=== PATIENT | female | born 1985 | race Caucasian/White ===

== ENCOUNTER → 2018-11-12 | Outpatient (CLI) | payer MEDICAID ==
--- NOTE | 2018-11-12 14:27 | RADIOLOGY REPORT (SQ) ---
EXAM DESCRIPTION: U/S OB TRANSVAGINAL W/O DOP COMPLETED DATE/TIME: 11/12/2018 1:38 pm REASON FOR STUDY: Z34.81 ENCOUNTER FOR SUPRVSN OF NORMAL , FIRST TRIMESTER Z34.81 ENCOUNTE R FOR SUPRVSN OF NORMAL , FIRST TRIM COMPARISON: None. TECHNIQUE: Transvaginal static and realtime grayscale images acquired of the pelvis. Additional jhonny cted spectral and color Doppler images recorded. All images stored on PACs. bHCG: Not available CLINICAL DATES: LMP 09/02/2018. 10 weeks 1 day LIMITATIONS: None. FINDINGS: FETUS: Single Living intrauterine . ULTRASOUND EGA: 6 weeks 0 days ULTRASOUND FELICITA: 07/08/2019 EFW: Not applicable less than 20 weeks. CRL: 0.35 cm FHR: Very faint flicker is seen. SURVEY: No visualized anomalies. AMNIOTIC FLUID: Adequate amount. PLACENTA: Not yet developed due to early gestation. SUBCHORIONIC BLEED: No SIZE OF BLEED: Not applicable. UTERUS: No masses. No anomalies. CERVICAL LENGTH: 3.3 cm Closed. RIGHT ADNEXA: Normal ovary with normal vascular flow. 3.8 x 2.4 x 1.7 cm. No adnexal free fluid. No adnexal masses. LEFT ADNEXA: Normal ovary with normal vascular flow. 2.4 x 1.8 x 1.5 cm. No adnexal free fluid. No adnexal masses. FREE FLUID: None. OTHER: No other significant finding. IMPRESSION: There appears to be an early intrauterine gestation of 6 weeks 0 days. Strong hea rt motion was not noted. Follow-up as clinically indicated. Trimester of : First - 0 to 13 weeks. TECHNICAL DOCUMENTATION: JOB ID: [id number] [facility]- All Rights Reserved rev-02/08 Reading location - IP/workstation name: [email or web address]
== END ==
LOC: RAD 12:33
PROVIDERS: ATTEND Nurse Practitioner
DX: Z34.81 Encounter for supervision of other normal pregnancy, first trimester (principal)
CPT/HCPCS: 76817

== ENCOUNTER 2018-11-23 15:23 | Emergency (ER) | payer MEDICAID ==
--- NOTE | 2018-11-23 15:38 | ER Document Report ---
ED Medical Screen (RME) - General Chief Complaint: Anxiety Stated Complaint: PSYCH CONSULT Time Seen by Provider: 11/23/18 15:36 Primary Care Provider: MIKAEL COOPER [Primary Care Provider] - Follow up as needed Mode of Arrival: Ambulatory Information source: Patient TRAVEL OUTSIDE OF THE [place] IN LAST 30 DAYS: No - HPI Patient complains to provider of: psych consult Onset: Other - pt. with h/o BPD with recent thoughts of SI - Related Data Allergies/Adverse Reactions: codeine [Codeine] Allergy (Verified 11/23/18 15:29) Past Medical History - Immunizations Hx Diphtheria, Pertussis, Tetanus Vaccination: Yes Physical Exam - Vital signs Vitals: Temp Pulse Resp BP Pulse Ox 99.1 F 88 16 121/71 98 11/23/18 15:30 11/23/18 15:30 11/23/18 15:30 11/23/18 15:30 11/23/18 15:30 Course - Vital Signs Vital signs: Temp Pulse Resp BP Pulse Ox 99.1 F 88 16 121/71 98 11/23/18 15:30 11/23/18 15:30 11/23/18 15:30 11/23/18 15:30 11/23/18 15:30 Doctor's Discharge - Discharge Referrals: MIKAEL COOPER [Primary Care Provider] - Follow up as needed
[2018-11-23 16:33] LABS: ABSOLUTE EOSINOPHILS # (AUTO) 0.1 10^3/uL (0.0-0.6); ABSOLUTE LYMPHOCYTES (AUTO) 2.7 10^3/uL (0.5-4.7); ABSOLUTE MONOCYTES (AUTO) 0.7 10^3/uL (0.1-1.4); ABSOLUTE NEUT (AUTO) 6.3 10^3/uL (1.7-8.2); BASOPHILS % (AUTO) 0.4 % (0-2); EOSINOPHILS % (AUTO) 0.6 % (0-6); HEMATOCRIT 38.1 % (36.0-47.0); LYMPHOCYTES % (AUTO) 27.8 % (13-45); MEAN CORPUSCULAR HEMOGLOBIN 30.8 pg (27.0-33.4); MEAN CORPUSCULAR HGB CONC 34.1 g/dL (32.0-36.0); MEAN CORPUSCULAR VOLUME 90 fl (80-97); MONOCYTES % (AUTO) 7.5 % (3-13); PLATELET COUNT 241 10^3/uL (150-450); RED BLOOD COUNT 4.22 10^6/uL (3.72-5.28); RED CELL DISTRIBUTION WIDTH 12.5 % (11.5-14.0); SEGMENTED NEUTROPHILS % (AUTO) 63.7 % (42-78); TOTAL CELLS COUNTED % (AUTO) 100 %; WHITE BLOOD COUNT 9.9 10^3/uL (4.0-10.5)
[2018-11-23 16:34] LABS: APPEARANCE,URINE SLIGHTLY-CLOUDY; BILIRUBIN,URINE NEGATIVE (NEGATIVE); COLOR,URINE YELLOW; GLUCOSE, URINE NEGATIVE (NEGATIVE); KETONES,URINE NEGATIVE (NEGATIVE); LEUKOCYTE ESTERASE,URINE NEGATIVE (NEGATIVE); NITRITE,URINE NEGATIVE (NEGATIVE); PROTEIN,URINE NEGATIVE (NEGATIVE); URINE SPECIFIC GRAVITY 1.024
[2018-11-23 16:48] LABS: ALANINE AMINOTRANSFERASE 30 U/L (9-52); ALBUMIN 4.5 g/dL (3.5-5.0); ALKALINE PHOSPHATASE 65 U/L (38-126); ANION GAP 7 (5-19); ASPARTATE AMINO TRANSFERASE 27 U/L (14-36); BILIRUBIN,DIRECT 0.1 mg/dL (0.0-0.4); BILIRUBIN,TOTAL 0.4 mg/dL (0.2-1.3); BLOOD UREA NITROGEN 11 mg/dL (7-20); CALCIUM 9.2 mg/dL (8.4-10.2); CARBON DIOXIDE 29 mmol/L (22-30); CHLORIDE 106 mmol/L (98-107); GLUCOSE 83 mg/dL (75-110); POTASSIUM 4.3 mmol/L (3.6-5.0); SODIUM 142.2 mmol/L (137-145); TOTAL PROTEIN 7.2 g/dL (6.3-8.2)
[2018-11-23 16:49] LABS: ALCOHOL < 10 mg/dL (NONE DETECTED)
[2018-11-23 16:50] LABS: URINE AMPHETAMINES SCREEN NEGATIVE; URINE BARBITURATES SCREEN NEGATIVE; URINE BENZODIAZEPINES SCREEN NEGATIVE; URINE COCAINE SCREEN NEGATIVE; URINE MARIJUANA (THC) SCREEN NEGATIVE; URINE METHADONE SCREEN NEGATIVE; URINE PHENCYCLIDINE SCREEN NEGATIVE
[2018-11-23] MEDS ORDERED: OLANZAPINE 2.5 MG TABLET PO ONE (17:34)
--- NOTE | 2018-11-23 17:40 | ER Document Report ---
ED General <GONZALEZLOVE - Last Filed: 11/23/18 18:27> - General Mode of Arrival: Ambulatory TRAVEL OUTSIDE OF THE [place] IN LAST 30 DAYS: No <MARKOS AYALA - Last Filed: 11/23/18 18:34> - General Chief Complaint: Anxiety Stated Complaint: PSYCH CONSULT Time Seen by Provider: 11/23/18 15:36 Primary Care Provider: [facility] [Outside] - Follow up as needed LOCAL,MIKAEL [NO LOCAL MD] - Follow up as needed Notes: 33-year-old female with history of depression bipolar disorder presents to the emergency department after calling my office and being referred here for medication. She states that she has a lot of life stressors right now, does not know anyone here, everything she owns is with her partner, and generally appears stressed. She currently denies SI/HI. Psych consult has been placed medication recommendations have been given. (MARKOS AYALA) - Related Data Allergies/Adverse Reactions: codeine [Codeine] Allergy (Verified 11/23/18 15:29) Past Medical History - General Information source: Patient - Social History Smoking Status: Current Every Day Smoker Chew tobacco use (# tins/day): No Frequency of alcohol use: Occasional Drug Abuse: None Family History: None Patient has suicidal ideation: Yes Patient has homicidal ideation: No Renal/ Medical History: Denies: Hx Peritoneal Dialysis Psychiatric Medical History: Reports: Hx Bipolar Disorder, Hx Depression - Immunizations Hx Diphtheria, Pertussis, Tetanus Vaccination: Yes <MARKOS AYALA - Last Filed: 11/23/18 18:34> Review of Systems - Review of Systems Constitutional: No symptoms reported EENT: No symptoms reported Cardiovascular: No symptoms reported Respiratory: No symptoms reported Gastrointestinal: No symptoms reported Genitourinary: No symptoms reported Female Genitourinary: No symptoms reported Musculoskeletal: No symptoms reported Skin: No symptoms reported Hematologic/Lymphatic: No symptoms reported Neurological/Psychological: No symptoms reported, Depression, Anxiety. denies: Hallucinations, Homicidal ideation, Suicidal ideation <MAKROS AYALA - Last Filed: 11/23/18 18:34> Physical Exam - General General appearance: Appears well, Anxious In distress: Mild - HEENT Head: Normocephalic, Atraumatic Eyes: Normal Conjunctiva: Normal Extraocular movements intact: Yes - Respiratory Respiratory status: No respiratory distress - Neurological Cognition: Normal Orientation: AAOx4 Sirena Coma Scale Eye Opening: Spontaneous [place] Coma Scale Verbal: Oriented Sirena Coma Scale Motor: Obeys Commands Sirena Coma Scale Total: 15 Speech: Normal - Psychological Associated symptoms: Anxious, Decreased appetite, Depressed, Restlessness <MARKOS AYALA - Last Filed: 11/23/18 18:34> - Vital signs Vitals: Temp Pulse Resp BP Pulse Ox 99.1 F 88 16 121/71 98 11/23/18 15:30 11/23/18 15:30 11/23/18 15:30 11/23/18 15:30 11/23/18 15:30 Course - Laboratory Result Diagrams: 11/23/18 15:55 11/23/18 15:55 <LOVE GONZALEZ - Last Filed: 11/23/18 18:27> - Laboratory Result Diagrams: 11/23/18 15:55 11/23/18 15:55 <MARKOS AYALA - Last Filed: 11/23/18 18:34> - Re-evaluation Re-evalutation: 11/23/18 17:38 33-year-old female here for manic episode and "bipolar attack ". Psych consult was placed and recommendation was Zyprexa 2.5 mg p.o. twice daily. She will receive Zyprexa 2.5 mg p.o. 1 time here in the emergency department and given a 14-day prescription. She is medically stable at this point for discharge. (MARKOS AYALA) - Vital Signs Vital signs: Temp Pulse Resp BP Pulse Ox 99.1 F 88 16 121/71 98 11/23/18 15:30 11/23/18 15:30 11/23/18 15:30 11/23/18 15:30 11/23/18 15:30 - Laboratory Laboratory results interpreted by me: 11/23/18 15:55 Urine Blood MODERATE H Urine Urobilinogen 2.0 H Urine HCG, Qual POSITIVE H Discharge <LOVE GONZALEZ - Last Filed: 11/23/18 18:27> <MARKOS AYALA - Last Filed: 11/23/18 18:34> - Discharge Clinical Impression: Bipolar disorder, unspecified Qualifiers: Active/Remission status: remission status unspecified Qualified Code(s): F31.9 - Bipolar disorder, unspecified Condition: Good Disposition: HOME, SELF-CARE Additional Instructions: You have been evaluated both medical and behavioral health teams and been deemed appropriate for discharge. You have provided prescription for Zyprexa 2.5 mg twice daily; please take as directed. You have provided resource list of area providers including mobile crisis contact information. DEPRESSION: Your evaluation reveals that you have mental depression. While symptoms may be vague, they often include disturbance of sleep, fatigue, loss of appetite, and general loss of interest in life. While depression may be a side effect of drugs, or a reaction to a major change in your life, many cases have no known cause. If depression is acute, and related to a major loss in your life, you can expect it to clear completely with time. If you have been depressed a long time, are prone to repeated bouts of depression or low mood, or have been thinking of suicide, get help. Depression can be treated with anti-depressant medication and counselling. Long-term depression will often take a few weeks to clear, even with appropriate medication. Follow-up care is important. SUICIDAL IDEATION: Suicidal ideation is a common medical term for thoughts about suicide, which may be as detailed as a formulated plan, without the suicidal act itself. Although most people who undergo suicidal ideation do not commit suicide, some go on to make suicide attempts. The range of suicidal ideation varies greatly from fleeting to detailed planning, role playing, and unsuccessful attempts. While thoughts about suicide are common, most people do not carry out serious actions to commit suicide. Based upon your evaluation and discussion with you, we do not believe you are currently at risk to act upon your thoughts of suicide. You have agreed to return to the Emergency Department, at any time, if you feel inclined to act upon your suicidal thoughts. FOLLOW-UP CARE: If you experience worsening or a significant change in your symptoms, notify the physician immediately or return to the Emergency Department at any time for re- evaluation. Prescriptions: Olanzapine [Zyprexa 2.5 mg Tablet] 2.5 mg PO BID 14 Days #28 tablet Referrals: MIKAEL COOPER [NO LOCAL MD] - Follow up as needed [facility] [Outside] - Follow up as needed
--- NOTE | 2018-11-23 17:41 | PSYCHOLOGICAL NOTE ---
Psych Note - Psych Note Date seen by psych provider: 11/23/18 Time seen by psych provider: 16:20 Psych Note: Reason for consult: Anxiety depression Patient reports she arrived to [facility] because she is been having difficulty controlling her moods. 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 She reports she has been diagnosed with bipolar however is not been taking medications successfully for for many years. She discloses that she currently needs something right now though. She reports that she has a history of substance abuse and did have passive suicidal ideation this morning. She reports "I thought of killing myself are going and doing dope." Patient has been able to maintain sobriety for 2-1/2 years successfully. Patient reports she is new to this area and would like information for therapeutic services additionally. Patient discloses that her moods have been so bad that she currently has her car packed with all her belongings because of the fights she is had with her significant other. She confirms that they have reconciled but feels it is very fragile and needs help to maintain her mood. Patient is alert and orientated to person, place, time and circumstance. Mood is dysphoric with tearful affect. Patient endorses passive suicidal ideation that comes and goes denies current. Patient denies homicidal ideation. Delusions are absent behaviors congruent with an intact reality based presentation i.e. organized and linear thought process. Eye contact was well- maintained. Conversational speech is within normal rate, tone and prosody. Intellectual abilities appear to be within the average range. Attention and concentration are good. Insight, judgment, impulse control are fair. Medication recommendations per [facility]'s contracted psychiatrist Dr. Caterina JAMISON are as follows Zyprexa 2.5 mg twice daily Unspecified bipolar per history provided by patient Impression\\plan: Patient is cleared from acute psychiatric services. Patient discloses increase in stability. Patient does disclose having 3 miscarriages in the last 6 months which could be contributing to her new instability with her mood. Patient had been successful in maintaining symptoms without medication. Patient is asking for assistance with both medication and resources for the local area for therapy. Patient was provided local resource list of area providers including mobile crisis contact information. Medication recommendations have been provided. Dr. Vance was consulted and the care management this patient; attending physicians in agreement with recommendations and disposition.
[2018-11-23] MEDS ORDERED: OLANZAPINE 2.5 MG TABLET ONE (18:02)
[2018-11-23 18:39] VITALS: BP 115/77
== END 2018-11-23 18:39 | disposition home or self-care (01) ==
LOC: ER 15:23
DX: F31.9 Bipolar disorder, unspecified (principal); F41.9 Anxiety disorder, unspecified; R45.851 Suicidal ideations; F17.200 Nicotine dependence, unspecified, uncomplicated; Z88.5 Allergy status to narcotic agent; R63.0 Anorexia
CPT/HCPCS: 99284; 36415; 80307 ×2; 84443; 85025; 81025; 80053; 81001; J3490